=== PATIENT | male | born 1960 | race African-American/Black ===

== ENCOUNTER 2019-03-29 01:42 | Inpatient (IN) | payer OTHER ==
[~2019-03-29] VITALS: Ht 188 cm; Wt 68.4 kg
--- NOTE | 2019-03-29 01:47 | NUR ---
CODE CARDIAC CALLED @ [phone]
--- NOTE | 2019-03-29 01:48 | NUR ---
SUPERVISOR MATTRESS AND BOXSPRINGS PAGED@ [phone]
--- NOTE | 2019-03-29 01:50 | NUR ---
RETURNED STEMI CALL@ [phone]
[2019-03-29] MEDS ORDERED: ONDANSETRON 2MG/ML, 2ML ONE (01:51)
[2019-03-29] MEDS ORDERED: MORPHINE SULFATE 4 MG/ML, 1ML ONE (01:52)
[2019-03-29] MEDS: NITROGLYCERIN 0.4 MG BOTTLE (25 TABS) SL PRN ×3 (01:53→02:07)
[2019-03-29] MEDS ORDERED: ONDANSETRON 2MG/ML, 2ML IVPush ONE (02:00)
[2019-03-29] MEDS ORDERED: MORPHINE SULFATE 4 MG/ML, 1ML IVPush PRN (02:00)
--- NOTE | 2019-03-29 02:02 | NUR ---
bib remsa with code cardiac pre alert c/o syncope at home and called 911, pt a and o x 4, pain decreasing from 10 to 9 at this time with meds per mar
[2019-03-29] MEDS ORDERED: FENTANYL PF 250 MCG/5ML ONE (02:11)
[2019-03-29] MEDS ORDERED: LIDOCAINE 1%, 20ML ONE (02:11)
[2019-03-29] MEDS ORDERED: HEPARIN 1,000 UNITS/ML, 10ML ONE (02:11)
[2019-03-29] MEDS ORDERED: MIDAZOLAM 1 MG/ML, 5ML ONE (02:11)
[2019-03-29] MEDS ORDERED: BIVALIRUDIN 250 MG ONE (02:11)
[2019-03-29 02:13] LABS: INTERNATIONAL NORMALIZED RATIO 0.91 (0.93-1.1); PROTHROMBIN TIME 9.6 Seconds (9.6-11.5)
--- NOTE | 2019-03-29 02:16 | NUR ---
PT TO DIRECTOR INTERNATIONAL@ [phone]
[2019-03-29 02:22] LABS: TROPONIN I < 0.015 ng/mL (0.000-0.045)
[2019-03-29 02:28] LABS: ALANINE AMINOTRANSFERASE 11 U/L (12-78); ALBUMIN 3.8 g/dL (3.4-5.0)
--- NOTE | 2019-03-29 02:28 | NUR ---
PT TO SWEEPER OPERATOR HIGHWAYS ON ALL MONITORS IN NAD AT THIS TIME
[2019-03-29 02:29] LABS: BILIRUBIN, DIRECT < 0.1 mg/dL (0.1-0.2)
[2019-03-29 02:30] LABS: ALKALINE PHOSPHATASE 70 U/L (45-117); BILIRUBIN,TOTAL 0.1 mg/dL (0.2-1.0); TOTAL PROTEIN 7.8 g/dL (6.4-8.2)
[2019-03-29] MEDS ORDERED: morphine SULFATE 10 MG/ML, 1ML IVPush PRN (02:30)
[2019-03-29] MEDS ORDERED: SODIUM CHLORIDE 0.9% 1,000ML IVBOLUS ONE (02:30)
[2019-03-29] MEDS ORDERED: hydrALAzine 20 MG/ML, 1ML IVPush PRN (02:30)
[2019-03-29] MEDS ORDERED: ACETAMINOPHEN 325 MG TABLET PO PRN (02:30)
[2019-03-29] MEDS ORDERED: ONDANSETRON ODT 4 MG PO PRN (02:30)
[2019-03-29] MEDS ORDERED: POTASSIUM CHLORIDE 40 MEQ in SODIUM CHLORIDE 0.9% 100 ML IV ONE (02:30)
[2019-03-29] MEDS ORDERED: PROMETHAZINE 25 MG/ML, 1ML IM PRN (02:30)
[2019-03-29] MEDS ORDERED: ONDANSETRON 2MG/ML, 2ML IVPush PRN (02:30)
[2019-03-29] MEDS ORDERED: NITROGLYCERIN 0.4 MG BOTTLE (25 TABS) SL PRN (02:30)
[2019-03-29 02:36] LABS: MEAN CORPUSCULAR HGB CONC 33.3 g/dL (33.2-36.2); MEAN PLATELET VOLUME 8.6 fL (7.4-10.4); PLATELET COUNT 477 x10^3/uL (130-400); RED BLOOD COUNT 2.72 x10^6/uL (4.38-5.82); RED CELL DISTRIBUTION WIDTH 12.6 % (9.4-14.8)
[2019-03-29 02:38] LABS: BASOPHILS # (AUTO) 0.01 x10^3/uL (0-0.1); BASOPHILS % (AUTO) 0 % (0-1); EOSINOPHILS # (AUTO) 0.01 x10^3/uL (0-0.4); EOSINOPHILS % (AUTO) 0 % (1-7); LYMPHOCYTES # (AUTO) 1.74 x10^3/uL (1-3.4); LYMPHOCYTES % (AUTO) 15 % (22-44); MD SCAN; MONOCYTES # (AUTO) 0.29 x10^3/uL (0.2-0.8); MONOCYTES % (AUTO) 2 % (2-9); NEUTROPHILS # (AUTO) 9.96 x10^3/uL (1.8-6.8); NEUTROPHILS % (AUTO) 83 % (42-75)
[2019-03-29 02:45] LABS: FREE T4 (FREE THYROXINE) 1.02 ng/dL (0.76-1.46)
[2019-03-29] MEDS: SODIUM CHLORIDE 0.9% 1,000 ML IV SCH ×4 (02:52→12:14)
[2019-03-29] MEDS ORDERED: PANTOPRAZOLE 40 MG IV IVPush SCH (04:00)
[2019-03-29] MEDS ORDERED: POTASSIUM CHLORIDE 40 MEQ in SODIUM CHLORIDE 0.9% 500 ML IV ONE ×2 (04:30→10:00)
[2019-03-29] MEDS ORDERED: ASPIRIN 325 MG TABLET EC PO SCH (06:00)
[2019-03-29 08:26] LABS: ANION GAP 10 mmol/L (5-15); CALCIUM 8.2 mg/dL (8.5-10.1); CHLORIDE 108 mmol/L (98-107); CREATININE 1.83 mg/dL (0.7-1.3)
[2019-03-29 08:30] VITALS: BP 124/73
[2019-03-29 09:18] LABS: BASOPHILS # (AUTO) 0.02 x10^3/uL (0-0.1); BASOPHILS % (AUTO) 0 % (0-1); EOSINOPHILS # (AUTO) 0.01 x10^3/uL (0-0.4); EOSINOPHILS % (AUTO) 0 % (1-7); LYMPHOCYTES # (AUTO) 1.49 x10^3/uL (1-3.4); LYMPHOCYTES % (AUTO) 15 % (22-44); MD SCAN; MEAN CORPUSCULAR HEMOGLOBIN 34.4 pg (27.5-34.5); MEAN CORPUSCULAR HGB CONC 33.5 g/dL (33.2-36.2); MEAN CORPUSCULAR VOLUME 102.6 fL (81-97); MEAN PLATELET VOLUME 8.1 fL (7.4-10.4); MONOCYTES # (AUTO) 0.28 x10^3/uL (0.2-0.8); MONOCYTES % (AUTO) 3 % (2-9); NEUTROPHILS # (AUTO) 8.17 x10^3/uL (1.8-6.8); NEUTROPHILS % (AUTO) 82 % (42-75); PLATELET COUNT 373 x10^3/uL (130-400); RED BLOOD COUNT 2.27 x10^6/uL (4.38-5.82); RED CELL DISTRIBUTION WIDTH 12.6 % (9.4-14.8)
[2019-03-29] MEDS: DOCUSATE 100 MG CAPSULE PO PRN (09:45)
[2019-03-29] MEDS: POLYETHYLENE GLYCOL 17 GM PACKET PO PRN (09:45)
[2019-03-29 10:18] LABS: TOTAL IRON BINDING CAPACITY 315 mcg/dL (250-450); TRANSFERRIN 171 mg/dL (200-360)
[2019-03-29 10:21] LABS: % IRON SATURATION 12 % (20-55); IRON LEVEL 38 mcg/dL (65-175); TROPONIN I < 0.015 ng/mL (0.000-0.045)
[2019-03-29] MEDS ORDERED: ERGOCALCIFEROL 50,000 UNIT CAPSULE PO SCH (12:00)
[2019-03-29] MEDS: PANTOPRAZOLE 80 MG in SODIUM CHLORIDE 0.9% 100 ML IV SCH ×2 (12:42→21:49)
[2019-03-29 12:52] LABS: MEAN CORPUSCULAR HEMOGLOBIN 34.1 pg (27.5-34.5); MEAN CORPUSCULAR HGB CONC 33.6 g/dL (33.2-36.2); MEAN CORPUSCULAR VOLUME 101.5 fL (81-97); MEAN PLATELET VOLUME 7.9 fL (7.4-10.4); PLATELET COUNT 352 x10^3/uL (130-400); RED BLOOD COUNT 2.19 x10^6/uL (4.38-5.82); RED CELL DISTRIBUTION WIDTH 12.6 % (9.4-14.8)
[2019-03-29 13:30] VITALS: BP 103/66
[2019-03-29 14:04] LABS: MD SCAN
[2019-03-29 14:05] LABS: BASOPHILS # (AUTO) 0.04 x10^3/uL (0-0.1); BASOPHILS % (AUTO) 0 % (0-1); EOSINOPHILS # (AUTO) 0.01 x10^3/uL (0-0.4); EOSINOPHILS % (AUTO) 0 % (1-7); LYMPHOCYTES # (AUTO) 1.58 x10^3/uL (1-3.4); LYMPHOCYTES % (AUTO) 16 % (22-44); MONOCYTES # (AUTO) 0.48 x10^3/uL (0.2-0.8); MONOCYTES % (AUTO) 5 % (2-9); NEUTROPHILS # (AUTO) 7.52 x10^3/uL (1.8-6.8); NEUTROPHILS % (AUTO) 1 % (42-75)
[2019-03-29] MEDS: BISACODYL 10 MG SUPP PR PRN (18:22)
[2019-03-29 19:55] VITALS: BP 132/82
[2019-03-30] VITALS (9 sets, daily range): BP systolic 111–149; BP diastolic 65–85
[2019-03-30 06:06] LABS: MEAN CORPUSCULAR VOLUME 103.1 fL (81-97); MEAN PLATELET VOLUME 7.9 fL (7.4-10.4); PLATELET COUNT 350 x10^3/uL (130-400); RED BLOOD COUNT 1.92 x10^6/uL (4.38-5.82); RED CELL DISTRIBUTION WIDTH 12.5 % (9.4-14.8)
[2019-03-30 06:11] LABS: ALANINE AMINOTRANSFERASE 10 U/L (12-78); ALBUMIN 2.7 g/dL (3.4-5.0); ANION GAP 6 mmol/L (5-15); CALCIUM 8.4 mg/dL (8.5-10.1); CHLORIDE 115 mmol/L (98-107); CREATININE 1.03 mg/dL (0.7-1.3)
[2019-03-30 06:18] LABS: ALKALINE PHOSPHATASE 46 U/L (45-117); BILIRUBIN,TOTAL 0.4 mg/dL (0.2-1.0); CHOL/HDL RATIO 3.2; CHOLESTEROL, TOTAL 103 mg/dL (140-239); HDL CHOL % 31 % (26-37); HDL CHOLESTEROL (DIRECT) 32 mg/dL (40-60); LDL CHOLESTEROL,CALCULATED 50 mg/dL (54-169); LDL/HDL RATIO 1.6 (0.5-3.0); TOTAL PROTEIN 5.7 g/dL (6.4-8.2); TRIGLYCERIDES 103 mg/dL (50-200); VLDL CHOLESTEROL 21 mg/dL (0-25)
[2019-03-30 06:47] LABS: BASOPHILS # (AUTO) 0.04 x10^3/uL (0-0.1); BASOPHILS % (AUTO) 1 % (0-1); EOSINOPHILS # (AUTO) 0.01 x10^3/uL (0-0.4); EOSINOPHILS % (AUTO) 0 % (1-7); LYMPHOCYTES # (AUTO) 1.61 x10^3/uL (1-3.4); LYMPHOCYTES % (AUTO) 21 % (22-44); MD SCAN; MONOCYTES % (AUTO) 7 % (2-9); NEUTROPHILS # (AUTO) 5.45 x10^3/uL (1.8-6.8); NEUTROPHILS % (AUTO) 72 % (42-75)
[2019-03-30] MEDS: PANTOPRAZOLE 80 MG in SODIUM CHLORIDE 0.9% 100 ML IV SCH ×2 (08:32→19:43)
[2019-03-30] MEDS ORDERED: MIDAZOLAM 1 MG/ML, 5ML ONE ×2 (09:29)
[2019-03-30] MEDS ORDERED: FENTANYL PF 100 MCG/2ML ONE (09:29)
[2019-03-30] MEDS ORDERED: POTASSIUM CHLORIDE 40 MEQ in SODIUM CHLORIDE 0.9% 500 ML IV ONE (11:30)
[2019-03-30] MEDS: SUCRALFATE 1 GM TABLET PO SCH ×3 (12:12→21:22)
[2019-03-30] MEDS: OXYcodone IR 5MG TABLET PO PRN (18:13)
[2019-03-30] MEDS: POLYETHYLENE GLYCOL 17 GM PACKET PO PRN (18:13)
[2019-03-30] MEDS: DOCUSATE 100 MG CAPSULE PO PRN (18:13)
[2019-03-30 20:00] LABS: BASOPHILS # (AUTO) 0.04 x10^3/uL (0-0.1); BASOPHILS % (AUTO) 1 % (0-1); EOSINOPHILS # (AUTO) 0.03 x10^3/uL (0-0.4); EOSINOPHILS % (AUTO) 0 % (1-7); LYMPHOCYTES # (AUTO) 1.74 x10^3/uL (1-3.4); LYMPHOCYTES % (AUTO) 19 % (22-44); MEAN CORPUSCULAR HEMOGLOBIN 33.8 pg (27.5-34.5); MEAN CORPUSCULAR VOLUME 99.5 fL (81-97); MEAN PLATELET VOLUME 7.9 fL (7.4-10.4); MONOCYTES # (AUTO) 0.35 x10^3/uL (0.2-0.8); MONOCYTES % (AUTO) 4 % (2-9); NEUTROPHILS # (AUTO) 7.14 x10^3/uL (1.8-6.8); NEUTROPHILS % (AUTO) 77 % (42-75); PLATELET COUNT 375 x10^3/uL (130-400); RED BLOOD COUNT 2.49 x10^6/uL (4.38-5.82); RED CELL DISTRIBUTION WIDTH 14.7 % (9.4-14.8)
[2019-03-30 20:01] LABS: MD NO
[2019-03-31 03:03] VITALS: BP 138/77
[2019-03-31] MEDS: BISACODYL 10 MG SUPP PR PRN (03:05)
[2019-03-31] MEDS: OXYcodone IR 5MG TABLET PO PRN ×3 (03:05→21:34)
[2019-03-31] MEDS: PANTOPRAZOLE 80 MG in SODIUM CHLORIDE 0.9% 100 ML IV SCH ×2 (06:08→16:14)
[2019-03-31 06:10] LABS: ANION GAP 2 mmol/L (5-15); CALCIUM 8.5 mg/dL (8.5-10.1); CHLORIDE 120 mmol/L (98-107); CREATININE 0.89 mg/dL (0.7-1.3)
[2019-03-31 06:28] LABS: BASOPHILS # (AUTO) 0.02 x10^3/uL (0-0.1); BASOPHILS % (AUTO) 0 % (0-1); EOSINOPHILS # (AUTO) 0.03 x10^3/uL (0-0.4); EOSINOPHILS % (AUTO) 0 % (1-7); LYMPHOCYTES # (AUTO) 1.93 x10^3/uL (1-3.4); LYMPHOCYTES % (AUTO) 25 % (22-44); MD NO; MEAN CORPUSCULAR HEMOGLOBIN 34.1 pg (27.5-34.5); MEAN CORPUSCULAR HGB CONC 34.1 g/dL (33.2-36.2); MEAN PLATELET VOLUME 8.3 fL (7.4-10.4); MONOCYTES # (AUTO) 0.36 x10^3/uL (0.2-0.8); MONOCYTES % (AUTO) 5 % (2-9); NEUTROPHILS % (AUTO) 69 % (42-75); PLATELET COUNT 360 x10^3/uL (130-400); RED BLOOD COUNT 2.47 x10^6/uL (4.38-5.82); RED CELL DISTRIBUTION WIDTH 14.7 % (9.4-14.8)
[2019-03-31] MEDS: SUCRALFATE 1 GM TABLET PO SCH ×4 (08:01→21:33)
[2019-03-31 08:20] VITALS: BP 139/73
[2019-03-31 14:12] VITALS: BP 142/85
[2019-03-31 21:38] VITALS: BP 157/86
[2019-04-01 02:01] VITALS: BP 137/73
[2019-04-01] MEDS: PANTOPRAZOLE 80 MG in SODIUM CHLORIDE 0.9% 100 ML IV SCH ×2 (02:04→12:17)
[2019-04-01] MEDS: OXYcodone IR 5MG TABLET PO PRN ×2 (02:11→11:15)
[2019-04-01 05:48] LABS: BASOPHILS # (AUTO) 0.04 x10^3/uL (0-0.1); BASOPHILS % (AUTO) 1 % (0-1); EOSINOPHILS # (AUTO) 0.05 x10^3/uL (0-0.4); EOSINOPHILS % (AUTO) 1 % (1-7); LYMPHOCYTES # (AUTO) 2.03 x10^3/uL (1-3.4); LYMPHOCYTES % (AUTO) 24 % (22-44); MD NO; MEAN CORPUSCULAR HEMOGLOBIN 33.7 pg (27.5-34.5); MEAN CORPUSCULAR HGB CONC 33.9 g/dL (33.2-36.2); MEAN CORPUSCULAR VOLUME 99.5 fL (81-97); MEAN PLATELET VOLUME 8.1 fL (7.4-10.4); MONOCYTES # (AUTO) 0.53 x10^3/uL (0.2-0.8); MONOCYTES % (AUTO) 6 % (2-9); NEUTROPHILS % (AUTO) 69 % (42-75); PLATELET COUNT 362 x10^3/uL (130-400); RED BLOOD COUNT 2.34 x10^6/uL (4.38-5.82); RED CELL DISTRIBUTION WIDTH 14.7 % (9.4-14.8)
[2019-04-01 06:01] LABS: ANION GAP 6 mmol/L (5-15); CALCIUM 8.1 mg/dL (8.5-10.1); CHLORIDE 107 mmol/L (98-107)
[2019-04-01 06:03] LABS: CREATININE 0.72 mg/dL (0.7-1.3)
[2019-04-01 07:58] VITALS: BP 158/90
[2019-04-01] MEDS: SUCRALFATE 1 GM TABLET PO SCH ×2 (07:58→11:15)
[2019-04-01 13:16] VITALS: BP 156/92
[2019-04-01] MEDS ORDERED: ONDA4TAB13 PO (13:36)
[2019-04-01] MEDS ORDERED: PANT40TA3 PO (13:36)
[2019-04-01] MEDS ORDERED: DOCU100C33 PO (13:36)
[2019-04-01] MEDS ORDERED: ERGO500017 PO (13:36)
[2019-04-01] MEDS ORDERED: SUCR1TAB33 PO (13:36)
[2019-04-01] MEDS ORDERED: FERR324T18 PO (13:44)
== END 2019-04-01 17:00 | disposition home or self-care (01) | DRG 286 ==
LOC: ED 01:53 → EDIP 02:16 → 5SO 03:13 → DCLOUNGE 04-01 16:39
PROVIDERS: ADMIT Internal Medicine; ATTEND Internal Medicine
PROC: 4A023N7 Measurement of Cardiac Sampling and Pressure, Left Heart, Percutaneous Approach (ICD-10-PCS; principal; 2019-03-29)
PROC: B211YZZ Fluoroscopy of Multiple Coronary Arteries using Other Contrast (ICD-10-PCS; 2019-03-29)
PROC: B215YZZ Fluoroscopy of Left Heart using Other Contrast (ICD-10-PCS; 2019-03-29)
PROC: 0DJ08ZZ Inspection of Upper Intestinal Tract, Via Natural or Artificial Opening Endoscopic (ICD-10-PCS; 2019-03-30)
PROC: 30233N1 Transfusion of Nonautologous Red Blood Cells into Peripheral Vein, Percutaneous Approach (ICD-10-PCS; 2019-03-30)
DX: R07.89 Other chest pain (principal); K25.4 Chronic or unspecified gastric ulcer with hemorrhage; D62 Acute posthemorrhagic anemia; N17.9 Acute kidney failure, unspecified; E87.6 Hypokalemia; F12.90 Cannabis use, unspecified, uncomplicated; K21.0 Gastro-esophageal reflux disease with esophagitis; K26.9 Duodenal ulcer, unspecified as acute or chronic, without hemorrhage or perforation; K59.00 Constipation, unspecified; Z87.891 Personal history of nicotine dependence
CPT/HCPCS: 36415; 74018; 93458; 96374; 96375; 99285; J3490; 36430; 71045; 80047; 80048; 80053; 80061; 80076; 82306; 82607; 82728; 83036; 83540; 83550; 83690; 83735; 84100; 84439; 84443; 84466; 84484; 85014; 85018; 85025; 85610; 85730; 86850; 86900; 86923; 93005; 93306; 99152; 99153; 99156; C1760; C1769; C1894; G0378; J0583; J1644; J2250; J2405; J3010; J3480; C9113; J2270; J7030; J7040; P9016; Q9967